=== PATIENT | female | born 1940 | race Caucasian/White ===

== ENCOUNTER 2017-09-13 20:15 | Inpatient (IN) | payer MEDICARE ==
[~2017-09-13] VITALS: Ht 154.9 cm; Wt 88.5 kg
[~2017-09-13 20:15] MED LIST: APRISO0.375 GM PO; ATORVASTATIN CA20 MG PO; AZELASTINE137 MCG/0.; BENTYL10 MG PO; CALCIUM CITRAT1 EA10 PO; CELEBREX100 MG PO; CENTRUM CHEWAB1 EACH PO; CLONIDINE HCL0.1 MG PO; CYMBALTA30 MG PO; DIOVAN160 MG PO; ENTOCORT EC3 MG PO; FAMOTIDINE20 MG PO; FENOFIBRATE145 MG PO; FEOSOL325 MG PO; FIBER625 MG PO; HYDROCODON-ACE1 EA16 PO; IMODIUM2 MG PO; LACTAID3000 UNI1 PO; LASIX20 MG PO; LEFLUNOMIDE20 MG PO; LEVOCETIRIZINE D5 MG PO; LIBRAX CAPSULE1 EACH PO; METHOCARBAMOL750 MG PO; METOPROLOL TART50 MG PO; OMEPRAZOLE40 MG PO; PREDNISONE5 MG PO; QUESTRAN PACKET4 GM PO; SPIRONOLACTONE25 MG PO; SYNTHROID50 MCG PO; TRAZODONE HCL50 MG PO; ULTRAM50 MG PO; VITAMIN B-121000 MCG PO; VITAMIN B-650 MG PO; VITAMIN D31000 UNI1 PO
--- OUTSIDE RECORDS SUMMARY | 2017-09-13 20:18 | XMS REPORT | Clinical Summary ---
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 Role Phone Asked, Pcp PCP Unavailable Allergies Active Allergy Reactions Severity Noted Date Comments Gabapentin Hives 02/04/2016 Penicillins Anaphylaxis High 02/04/2016 Current Medications Not on file Active Problems Not on file Social History Tobacco Use Types Packs/Day Years Used Date Never Smoker Alcohol Use Drinks/Week oz/Week Comments Yes Sex Assigned at Date Recorded Not on file Last Filed Vital Signs Not on file Plan of Treatment Health Maintenance Due Date Last Done Comments BREAST CANCER SCREENING 1992 COLON CANCER SCREENING 1992 SHINGRIX VACCINE (#1) 1992 ZOSTER VACCINE 2002 PNEUMOCOCCAL 2007 POLYSACCHARIDE VACCINE AGE 65 AND OVER PNEUMOCOCCAL-13 2007 INFLUENZA VACCINE 11/09/2017 Results Not on fileafter 09/12/2016 Insurance Payer Benefit Subscriber ID Type Phone Address Plan / Group AETNA MEDICARE AETNA xxxxxxxx O MEDICARE HMO/PPO [facility]
[2017-09-13] MEDS ORDERED: DIATRIZOATE MEGL/DIATRIZOA SOD 30 ML BTL PO ONE (21:05)
[2017-09-13 21:13] LABS: BASOPHILS # (AUTO) 0.1 (0.0-0.1); BASOPHILS % 0.3 % (0.0-1.0); EOSINOPHILS % 0.1 % (0.0-6.0); HEMOGLOBIN 14.2 g/dL (12.0-16.0); LYMPHOCYTES # (AUTO) 3.4 (1.0-3.2); LYMPHOCYTES % 16.2 % (18.0-39.1); MEAN CORPUSCULAR HEMOGLOBIN 31.2 pg (28-32); MEAN CORPUSCULAR HGB CONC 34.6 g/dL (31-35); MEAN CORPUSCULAR VOLUME 90.1 fL (81-99); MONOCYTES % 9.4 % (4.4-11.3); NEUTROPHILS # (AUTO) 15.4 (2.1-6.9); NEUTROPHILS % 73.5 % (38.7-80.0); PLATELET COUNT 292 x10e3/uL (140-360); RED BLOOD COUNT 4.55 x10e6/uL (3.6-5.1); RED CELL DISTRIBUTION WIDTH 12.6 % (11.7-14.4)
[2017-09-13 21:36] LABS: BLOOD UREA NITROGEN 26 mg/dL (7-26); BUN/CREATININE RATIO 25 (6-25); CARBON DIOXIDE 26 mmol/L (22-29); CHLORIDE 96 mmol/L (98-107); CREATININE, SERUM 1.04 mg/dL (0.57-1.11); EST GLOMERULAR FILTRATION RATE 52 ML/MIN (60-); SODIUM 133 mmol/L (136-145)
[2017-09-13 21:37] LABS: ALANINE AMINOTRANSFERASE 21 IU/L (0-55); ALBUMIN 3.9 g/dL (3.5-5.0); ALBUMIN/GLOBULIN RATIO 1.1 (0.8-2.0); ALKALINE PHOSPHATASE 52 IU/L (40-150); AMYLASE 41 U/L (25-125); CALCIUM 10.3 mg/dL (8.4-10.2); CREATINE KINASE 22 IU/L (29-168); GLUCOSE 146 mg/dL (74-118); LIPASE 13 U/L (8-78)
[2017-09-13 21:41] LABS: LYMPHOCYTES % (MANUAL) 11 % (19-48); MONOCYTES % (MANUAL) 13 % (3.4-9.0); NEUTROPHILS % (MANUAL) 74 % (40-74)
[2017-09-13 21:42] LABS: PLATELET ESTIMATE ADEQUATE; PLATELET MORPHOLOGY COMMENT NORMAL; RBC MORPHOLOGY COMMENT NORMAL
[2017-09-13] MEDS ORDERED: LEVOFLOXACIN 500MG/D5W 100ML 100 ML IV STA (21:42)
[2017-09-13] MEDS ORDERED: METRONIDAZOLE 500MG/NS 100ML 100 ML IV STA (21:42)
[2017-09-13] MEDS ORDERED: MORPHINE SULFATE 2 MG/ML SYR IV STA ×2 (21:42→23:29)
[2017-09-13] MEDS ORDERED: METRONIDAZOLE 500MG/NS 100ML 100 ML IV ONE (21:43)
[2017-09-13] MEDS ORDERED: SODIUM CHLORIDE 0.9% 1000ML 1,000 ML ONE (21:44)
[2017-09-13] MEDS ORDERED: SODIUM CHLORIDE 0.9% 1000ML 1,000 ML IV ONE (21:45)
[2017-09-13] MEDS ORDERED: ONDANSETRON HCL 4 MG ORAL DISINTEGRATING TAB PO ONE (21:45)
--- NOTE | 2017-09-13 23:18 | Diagnostic Imaging Report ---
EXAM: CT Abdomen and Pelvis WITHOUT contrast INDICATION: Abdominal pain COMPARISON: None. TECHNIQUE: Abdomen and pelvis were scanned utilizing a multidetector helical scanner from the lung base to the pubic symphysis without administration of IV contrast. Absence of intravenous contrast decreases sensitivity for detection of focal lesions and vascular pathology. Coronal and sagittal reformations were obtained. Routine protocol was performed. IV CONTRAST: None. ORAL CONTRAST: Gastrografin RADIATION DOSE: Total DLP: 717.82 mGy*cm Estimated effective dose: (DLP x 0.015 x size factor) mSv COMPLICATIONS: None FINDINGS: LINES and TUBES: None. LOWER THORAX: Small sliding hiatal hernia. HEPATOBILIARY: No focal hepatic lesions. No biliary ductal dilation. GALLBLADDER: No radio-opaque stones or sludge. No wall thickening. SPLEEN: No splenomegaly. PANCREAS: No focal masses or ductal dilatation. ADRENALS: No adrenal nodules KIDNEYS/URETERS: No hydronephrosis. No cystic or solid mass lesions. No stones. GI TRACT: No abnormal distention, wall thickening, or evidence of bowel obstruction. There are diverticula within the colon with evidence of diverticulitis. Appendix is not clearly identified. There is however no fat stranding or adenopathy in the right lower quadrant to suggest appendicitis. PELVIC ORGANS/BLADDER: Unremarkable. LYMPH NODES: No lymphadenopathy. VESSELS: There is moderate atherosclerotic disease in the aorta and major arterial branches. PERITONEUM / RETROPERITONEUM: There is evidence of free intraperitoneal air in the upper abdomen BONES: Unremarkable. SOFT TISSUES: Unremarkable. IMPRESSION: 1. Free intraperitoneal air suggests hollow viscus perforation. 2. Origin of air may be from subtle perforation of ongoing diverticulitis in the lower pelvis. Differential diagnosis may include a perforated gastric ulcer. 3. Findings were discussed with Dr. Toledo on 09/13/2017 at 11:10 PM Signed by: Dr. Mayur Carreon M.D. on 09/13/2017 11:14 PM
[2017-09-14] MEDS ORDERED: SODIUM CHLORIDE 0.9% 1000ML 1,000 ML IV ONE (00:15)
[2017-09-14 00:17] LABS: INR 1.2; PROTHROMBIN TIME 14.3 seconds (11.9-14.5)
--- OUTSIDE RECORDS SUMMARY | 2017-09-14 00:24 | XMS REPORT | Clinical Summary ---
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
--- OUTSIDE RECORDS SUMMARY | 2017-09-14 00:24 | XMS REPORT ---
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 Allergies, Adverse Reactions, Alerts This patient has no known allergies or adverse reactions. Medications This patient has no known medications. Results Test Description Test Time Test Comments Text Results Atomic Results Result Comments CT ABDOMEN/PELVIS WO [place] [address] Patient Name: ALONDRA HUERTA MR #: [id number] : 1940 Age/Sex: 77/F Req #: [id number] Adm Physician: Ordered by: YE HOPPER MD Report # : [id number] Location: ER Room/Bed: Procedure: 05 -26 CT/CT ABDOMEN/PELVIS WO Exam Date: 09/13/17 Exam Time: 2250 REPORT STATUS: Signed EXAM: CT Abdomen and Pelvis WITHOUT contrast INDICATION: Abdominal pain COMPARISON: None. TECHNIQUE : Abdomen and pelvis were scanned utilizing a multidetector helical scanner from the lung base to the pubic symphysis without administration of IV contrast. Absence of intravenous contrast decreases sensitivity for detection of focal lesions and vascular pathology. Coronal and sagittal reformations were obtained. Routine protocol was performed. IV CONTRAST: None. ORAL CONTRAST: Gastrografin RADIATION DOSE: Total DLP: 717.82 mGy*cm Estimated effective dose: (DLP x 0.015 x size factor) mSv COMPLICATIONS: None FINDINGS: LINES and TUBES: None. LOWER THORAX: Small sliding hiatal hernia. HEPATOBILIARY : No focal hepatic lesions. No biliary ductal dilation. GALLBLADDER: No radio-opaque stones or sludge. No wall thickening. SPLEEN: No splenomegaly. PANCREAS: No focal masses or ductal dilatation. ADRENALS: No adrenal nodules KIDNEYS/URETERS: No hydronephrosis. No cystic or solid mass lesions. No stones. GI TRACT: No abnormal distention, wall thickening, or evidence of bowel obstruction. There are diverticula within the colon with evidence of diverticulitis. Appendix is not clearly identified. There is however no fat stranding or adenopathy in the right lower quadrant to suggest appendicitis. PELVIC ORGANS/BLADDER: Unremarkable. LYMPH NODES: No lymphadenopathy. VESSELS: There is moderate atherosclerotic disease in the aorta and major arterial branches. PERITONEUM / RETROPERITONEUM: There is evidence of free intraperitoneal air in the upper abdomen BONES: Unremarkable. SOFT TISSUES: Unremarkable. IMPRESSION: 1. Free intraperitoneal air suggests hollow viscus perforation. 2. Origin of air may be from subtle perforation of ongoing diverticulitis in the lower pelvis. Differential diagnosis may include a perforated gastric ulcer. 3. Findings were discussed with Dr. Hopper on 09/13/2017 at 11:10 PM Signed by: Dr. Mayur Crareon M.D. on 09/13/2017 11:14 PM Dictated By: MAYUR WINN MD [id number] Transcribed By: JUNIOR on 09/13/17 2242 COPY TO: YE HOPPER MD
[2017-09-14] MEDS ORDERED: LEVOFLOXACIN 500MG/D5W 100ML IV SCH (00:30)
[2017-09-14] MEDS: SODIUM CHLORIDE 0.9% 1000ML 1,000 ML IV SCH ×3 (02:32→17:03)
[2017-09-14] MEDS ORDERED: ACETAMINOPHEN 1000 MG/100 ML IV STA (02:47)
[2017-09-14] MEDS ORDERED: ACETAMINOPHEN 1000 MG/100 ML IV PRN (03:00)
[2017-09-14 03:58] LABS: BILIRUBIN,URINE NEGATIVE (NEGATIVE); CLARITY,URINE CLEAR (CLEAR); COLOR,URINE YELLOW (YELLOW); KETONES,URINE NEGATIVE (NEGATIVE); LEUKOCYTE ESTERASE ,URINE NEGATIVE (NEGATIVE); NITRITE,URINE NEGATIVE (NEGATIVE); PROTEIN,URINE DIPSTICK NEGATIVE (NEGATIVE); URINE UROBILINOGEN 0.2 mg/dL (0.2 - 1)
[2017-09-14 04:16] LABS: BACTERIA,URINE FEW /HPF; EPITHELIAL CELLS,URINE RARE /LPF; RBC,URINE 0-5 /HPF (0-5); WBC,URINE (MAN) 0-5 /HPF (0-5)
[2017-09-14] MEDS: MORPHINE SULFATE 2 MG/ML SYR IV PRN ×4 (04:46→16:06)
[2017-09-14] MEDS: ONDANSETRON HCL INJ 2 MG/ML VIAL IV PRN (04:46)
[2017-09-14 05:27] LABS: BASOPHILS # (AUTO) 0.1 (0.0-0.1); BASOPHILS % 0.3 % (0.0-1.0); HEMATOCRIT 35.5 % (34.2-44.1); HEMOGLOBIN 12.2 g/dL (12.0-16.0); LYMPHOCYTES # (AUTO) 1.5 (1.0-3.2); LYMPHOCYTES % 8.4 % (18.0-39.1); MEAN CORPUSCULAR HEMOGLOBIN 31.2 pg (28-32); MEAN CORPUSCULAR HGB CONC 34.4 g/dL (31-35); MEAN CORPUSCULAR VOLUME 90.8 fL (81-99); MONOCYTES % 5.7 % (4.4-11.3); NEUTROPHILS # (AUTO) 15.3 (2.1-6.9); NEUTROPHILS % 84.6 % (38.7-80.0); PLATELET COUNT 196 x10e3/uL (140-360); RED BLOOD COUNT 3.91 x10e6/uL (3.6-5.1); RED CELL DISTRIBUTION WIDTH 12.7 % (11.7-14.4)
[2017-09-14 05:44] LABS: ALANINE AMINOTRANSFERASE 15 IU/L (0-55); ALBUMIN/GLOBULIN RATIO 1.1 (0.8-2.0); ALKALINE PHOSPHATASE 35 IU/L (40-150); ANION GAP 13.1 mmol/L (8-16); BLOOD UREA NITROGEN 24 mg/dL (7-26); BUN/CREATININE RATIO 29 (6-25); CALCIUM 8.6 mg/dL (8.4-10.2); CARBON DIOXIDE 22 mmol/L (22-29); CHLORIDE 103 mmol/L (98-107); CREATININE, SERUM 0.84 mg/dL (0.57-1.11); EST GLOMERULAR FILTRATION RATE > 60 ML/MIN (60-); GLUCOSE 110 mg/dL (74-118); POTASSIUM 4.1 mmol/L (3.5-5.1); SODIUM 134 mmol/L (136-145)
[2017-09-14] MEDS: METRONIDAZOLE 500MG/NS 100ML 100 ML IV SCH ×3 (05:48→18:13)
[2017-09-14] MEDS ORDERED: SPIRONOLACTONE25 MG PO (09:10)
[2017-09-14] MEDS ORDERED: LEVOCETIRIZINE D5 MG (09:10)
[2017-09-14] MEDS ORDERED: CYMBALTA30 MG (09:10)
[2017-09-14] MEDS ORDERED: LOSARTAN POTAS100 MG PO (09:10)
--- NOTE | 2017-09-14 10:33 | History and Physical ---
Ms. Chase is a pleasant, 77-year-old lady, a patient of Dr. Silva and Dr. Bailey, who is also seeing rheumatology for longstanding psoriatic arthritis. The patient was in her usual state of health until Tuesday when she woke up with significant abdominal pain. The patient describes the pain as diffuse, poorly localized and increasing in intensity over the day and became unbearable by the time she presented to the emergency department Tuesday evening. She denies any fever or chills. She had some nausea, but no vomiting. Her last bowel movement was Tuesday and according to the patient was normal. She had seen Dr. Bailey about a week prior and was found to be doing well. Workup in the emergency department revealed an increased white cell count of 20,000. The patient appeared to be dehydrated and septic. A CT of the abdomen and pelvis was significant for free intraperitoneal air suggesting a hollow viscus perforation. There are also scattered diverticula and evidence of diverticulitis. She was admitted to the hospital. She has been started on IV fluids and IV antibiotics, and a consultation is being requested with Dr. Mihai Vidal. PAST MEDICAL HISTORY: Hypertension, hypercholesterolemia, irritable bowel syndrome, chronic pain, hypothyroidism, and psoriatic arthritis. The patient denies any history of coronary artery disease or atherosclerotic heart disease. There is no history of stroke. No history of diabetes mellitus. No prior renal problems. PAST SURGICAL HISTORY: Significant for hysterectomy and right knee surgery. SOCIAL HISTORY: The patient is . She is living with her . She does not smoke or drink. FAMILY HISTORY: Significant for stroke in her mother and VT in her father. CURRENT MEDICATIONS: Include: 1. Duloxetine 30 mg daily. 2. Famotidine 20 mg daily. 3. Iron supplementation 325 mg 3 times a week. 4. Levothyroxine 50 mcg daily. 5. Losartan 100 mg a day. 6. Mesalamine. She is taking a short course of 1.5 mg daily for 10 days. 7. Metoprolol 50 mg twice a day. 8. Prednisone 5 mg daily. 9. Spironolactone 25 mg daily. 10. Tramadol. She takes 50 mg twice a day as needed for pain. 11. She is also on budesonide short course of 10 days at 9 mg daily. ALLERGIES: SHE IS ALLERGIC TO PENICILLIN (SHE IS NOT SURE ABOUT THE REACTION) AND GABAPENTIN. REVIEW OF SYSTEMS GENERAL: Patient looks acutely ill. She denies any significant weight loss. There is some malaise. RESPIRATORY: There is no dyspnea. No cough. CARDIOVASCULAR: There is no chest pain. GASTROINTESTINAL: Diffuse abdominal pain. No diarrhea. No constipation. Some nausea. PHYSICAL EXAMINATION GENERAL: She is awake, alert, oriented times 3. VITAL SIGNS: Blood pressure 108/76, pulse rate 92, respirations 18, temperature 99. SKIN: Dry and warm. Turgor is decreased. HEENT: Pupils are round, equal and reactive to light. Oral mucosa is dry. NECK: Supple. There is no increased JVD. CHEST: Nontraumatic. LUNGS: Normal bilateral respiratory sounds. HEART: S1 and S2 regular rhythm. No gallops or murmurs. ABDOMEN: Obese. Bowel sounds are present, but hypoactive. There is diffuse tenderness across the abdomen. EXTREMITIES: There is no edema. NEUROLOGIC: She is awake, alert, and oriented times 3. There are no focal sensory or motor deficits. ASSESSMENT 1. Acute complicated diverticulitis with suspected microperforation. 2. Intra-abdominal sepsis. 3. Chronic use of steroids for psoriatic arthritis. 4. Hypertension, which is controlled. PLAN: Admit her to the hospital. Start normal saline at 125 mL an hour. Continue with combination of levofloxacin and metronidazole. Morphine sulfate for pain. Request consultation with Dr. Mihai Vidal and Dr. Kenny Bailey. Job#: [id number]
[2017-09-14 12:49] VITALS: BP 105/50
[2017-09-14 13:33] VITALS: BP 105/50
[2017-09-14 13:39] VITALS: BP 105/50
[2017-09-14 16:01] VITALS: BP 121/56
[2017-09-14] MEDS: FAMOTIDINE 20 MG/2 ML VIAL IV SCH (17:07)
[2017-09-14 20:20] VITALS: BP 140/62
[2017-09-14] MEDS: LEVOFLOXACIN 500MG/D5W 100ML IV SCH (21:00)
[2017-09-15] VITALS (9 sets, daily range): BP systolic 118–145; BP diastolic 50–65
[2017-09-15] MEDS: SODIUM CHLORIDE 0.9% 1000ML 1,000 ML IV SCH ×3 (00:26→16:16)
[2017-09-15] MEDS: METRONIDAZOLE 500MG/NS 100ML 100 ML IV SCH ×5 (00:26→23:30)
[2017-09-15] MEDS: MORPHINE SULFATE 2 MG/ML SYR IV PRN ×4 (01:16→23:55)
[2017-09-15] MEDS: ONDANSETRON HCL INJ 2 MG/ML VIAL IV PRN (01:16)
--- NOTE | 2017-09-15 05:49 | Diagnostic Imaging Report ---
EXAMINATION: CHEST SINGLE (PORTABLE) INDICATION: Leukocytosis COMPARISON: None FINDINGS: TUBES and LINES: None. LUNGS: Lungs are not well inflated. Lungs are clear. There is no evidence of pneumonia or pulmonary edema. PLEURA: No pleural effusion or pneumothorax. HEART AND MEDIASTINUM: The cardiomediastinal silhouette is unremarkable. The aorta is ectatic with atherosclerotic calcifications. BONES AND SOFT TISSUES: No acute osseous lesion. Soft tissues are unremarkable. UPPER ABDOMEN: No free air under the diaphragm. IMPRESSION: No acute thoracic abnormality. Signed by: Dr. Mayur Carreon M.D. on 09/15/2017 5:46 AM
[2017-09-15 07:24] LABS: HEMATOCRIT 34.2 % (34.2-44.1); HEMOGLOBIN 11.6 g/dL (12.0-16.0); RED BLOOD COUNT 3.64 x10e6/uL (3.6-5.1)
[2017-09-15 07:25] LABS: BASOPHILS % 0.2 % (0.0-1.0); EOSINOPHILS % 0.3 % (0.0-6.0); LYMPHOCYTES # (AUTO) 1.4 (1.0-3.2); LYMPHOCYTES % 9.2 % (18.0-39.1); MEAN CORPUSCULAR HEMOGLOBIN 31.9 pg (28-32); MEAN CORPUSCULAR HGB CONC 33.9 g/dL (31-35); MONOCYTES # (AUTO) 1.2 (0.2-0.8); MONOCYTES % 7.6 % (4.4-11.3); NEUTROPHILS # (AUTO) 12.2 (2.1-6.9); PLATELET COUNT 186 x10e3/uL (140-360); RED CELL DISTRIBUTION WIDTH 12.9 % (11.7-14.4)
[2017-09-15 07:32] LABS: ANION GAP 11.4 mmol/L (8-16); BLOOD UREA NITROGEN 14 mg/dL (7-26); BUN/CREATININE RATIO 19 (6-25); CALCIUM 8.3 mg/dL (8.4-10.2); CARBON DIOXIDE 22 mmol/L (22-29); CHLORIDE 106 mmol/L (98-107); CREATININE, SERUM 0.73 mg/dL (0.57-1.11); EST GLOMERULAR FILTRATION RATE > 60 ML/MIN (60-); GLUCOSE 93 mg/dL (74-118); POTASSIUM 4.4 mmol/L (3.5-5.1); SODIUM 135 mmol/L (136-145)
[2017-09-15] MEDS: FAMOTIDINE 20 MG/2 ML VIAL IV SCH ×2 (08:36→17:22)
[2017-09-15 10:35] LABS: BAND NEUTROPHILS % (MANUAL) 3 %; BLAST CELLS % MANUAL 1; LYMPHOCYTES % (MANUAL) 6 % (19-48); MONOCYTES % (MANUAL) 15 % (3.4-9.0); NEUTROPHILS % (MANUAL) 72 % (40-74)
[2017-09-15 10:36] LABS: ANISOCYTOSIS SLIGHT; HYPOCHROMASIA SLIGHT; PLATELET ESTIMATE ADEQUATE; PLATELET MORPHOLOGY COMMENT NORMAL; RBC MORPHOLOGY COMMENT NORMAL
[2017-09-15] MEDS: LEVOFLOXACIN 500MG/D5W 100ML IV SCH (20:13)
[2017-09-16] VITALS (8 sets, daily range): BP systolic 130–150; BP diastolic 56–68
[2017-09-16] MEDS: SODIUM CHLORIDE 0.9% 1000ML 1,000 ML IV SCH ×3 (00:16→20:42)
[2017-09-16] MEDS: METRONIDAZOLE 500MG/NS 100ML 100 ML IV SCH ×4 (05:36→23:33)
[2017-09-16 06:03] LABS: BASOPHILS % 0.2 % (0.0-1.0); EOSINOPHILS # (AUTO) 0.1 (0.0-0.4); EOSINOPHILS % 0.8 % (0.0-6.0); HEMATOCRIT 32.4 % (34.2-44.1); LYMPHOCYTES # (AUTO) 1.3 (1.0-3.2); LYMPHOCYTES % 9.6 % (18.0-39.1); MEAN CORPUSCULAR HEMOGLOBIN 31.4 pg (28-32); MEAN CORPUSCULAR VOLUME 92.6 fL (81-99); MONOCYTES # (AUTO) 1.4 (0.2-0.8); MONOCYTES % 10.5 % (4.4-11.3); NEUTROPHILS # (AUTO) 10.6 (2.1-6.9); NEUTROPHILS % 77.7 % (38.7-80.0); PLATELET COUNT 197 x10e3/uL (140-360); RED CELL DISTRIBUTION WIDTH 12.9 % (11.7-14.4)
[2017-09-16 06:29] LABS: ALANINE AMINOTRANSFERASE 10 IU/L (0-55); ALBUMIN 2.1 g/dL (3.5-5.0); ALBUMIN/GLOBULIN RATIO 0.7 (0.8-2.0); ALKALINE PHOSPHATASE 44 IU/L (40-150); ANION GAP 13.1 mmol/L (8-16); BLOOD UREA NITROGEN 8 mg/dL (7-26); BUN/CREATININE RATIO 13 (6-25); CALCIUM 8.3 mg/dL (8.4-10.2); CARBON DIOXIDE 18 mmol/L (22-29); CHLORIDE 101 mmol/L (98-107); CREATININE, SERUM 0.62 mg/dL (0.57-1.11); EST GLOMERULAR FILTRATION RATE > 60 ML/MIN (60-); GLUCOSE 92 mg/dL (74-118); POTASSIUM 3.1 mmol/L (3.5-5.1); SODIUM 129 mmol/L (136-145)
[2017-09-16] MEDS: FAMOTIDINE 20 MG/2 ML VIAL IV SCH ×2 (08:01→17:07)
[2017-09-16] MEDS ORDERED: POTASSIUM CHLORIDE 20 MEQ TAB CR PO STA (09:37)
[2017-09-16] MEDS ORDERED: LEVOTHYROXINE SODIUM 50 MCG TAB PO SCH (09:45)
[2017-09-16] MEDS ORDERED: TRAMADOL HCL 50 MG TAB PO PRN (10:00)
[2017-09-16] MEDS: ONDANSETRON HCL INJ 2 MG/ML VIAL IV PRN (11:23)
[2017-09-16] MEDS: MORPHINE SULFATE 2 MG/ML SYR IV PRN ×2 (11:23→21:00)
[2017-09-16] MEDS ORDERED: POTASSIUM CHLORIDE 20 MEQ TAB CR PO ONE (14:00)
[2017-09-16] MEDS: METOPROLOL TARTRATE 50 MG TAB PO SCH (17:07)
[2017-09-16] MEDS: ENOXAPARIN SOD INJ 40 MG/0.4 ML SYR SC SCH (17:07)
[2017-09-16] MEDS: LEVOFLOXACIN 500MG/D5W 100ML IV SCH (21:00)
[2017-09-17] VITALS (8 sets, daily range): BP systolic 115–156; BP diastolic 62–76
[2017-09-17] MEDS: LEVOTHYROXINE SODIUM 50 MCG TAB PO SCH (05:31)
[2017-09-17] MEDS: METRONIDAZOLE 500MG/NS 100ML 100 ML IV SCH ×4 (05:31→23:30)
[2017-09-17] MEDS: TRAMADOL HCL 50 MG TAB PO PRN ×3 (05:44→22:47)
[2017-09-17 06:04] LABS: BASOPHILS % 0.3 % (0.0-1.0); EOSINOPHILS # (AUTO) 0.2 (0.0-0.4); EOSINOPHILS % 1.2 % (0.0-6.0); HEMATOCRIT 32.9 % (34.2-44.1); HEMOGLOBIN 11.2 g/dL (12.0-16.0); LYMPHOCYTES # (AUTO) 1.8 (1.0-3.2); LYMPHOCYTES % 15.1 % (18.0-39.1); MEAN CORPUSCULAR HEMOGLOBIN 31.1 pg (28-32); MEAN CORPUSCULAR VOLUME 91.4 fL (81-99); MONOCYTES # (AUTO) 1.5 (0.2-0.8); MONOCYTES % 12.1 % (4.4-11.3); NEUTROPHILS # (AUTO) 8.4 (2.1-6.9); NEUTROPHILS % 69.8 % (38.7-80.0); PLATELET COUNT 238 x10e3/uL (140-360); RED CELL DISTRIBUTION WIDTH 12.8 % (11.7-14.4)
[2017-09-17 06:22] LABS: ANION GAP 11.5 mmol/L (8-16); BLOOD UREA NITROGEN 7 mg/dL (7-26); BUN/CREATININE RATIO 11 (6-25); CALCIUM 8.8 mg/dL (8.4-10.2); CARBON DIOXIDE 23 mmol/L (22-29); CHLORIDE 104 mmol/L (98-107); CREATININE, SERUM 0.64 mg/dL (0.57-1.11); EST GLOMERULAR FILTRATION RATE > 60 ML/MIN (60-); GLUCOSE 108 mg/dL (74-118); POTASSIUM 3.5 mmol/L (3.5-5.1); SODIUM 135 mmol/L (136-145)
[2017-09-17] MEDS: POTASSIUM CHLORIDE 20 MEQ TAB CR PO SCH (08:01)
[2017-09-17] MEDS: SODIUM CHLORIDE 0.9% 1000ML 1,000 ML IV SCH ×2 (08:01→23:22)
[2017-09-17] MEDS: FAMOTIDINE 20 MG/2 ML VIAL IV SCH ×2 (08:01→16:42)
[2017-09-17] MEDS: METOPROLOL TARTRATE 50 MG TAB PO SCH ×2 (08:01→16:43)
[2017-09-17] MEDS ORDERED: POTASSIUM CHLORIDE 20 MEQ TAB CR PO ONE (11:30)
[2017-09-17] MEDS ORDERED: SODIUM CHLORIDE 452MG TAB PO ONE (11:30)
[2017-09-17] MEDS: ENOXAPARIN SOD INJ 40 MG/0.4 ML SYR SC SCH (16:43)
[2017-09-17] MEDS: LEVOFLOXACIN 500MG/D5W 100ML IV SCH (20:23)
[2017-09-18 01:19] VITALS: BP 157/74
[2017-09-18 04:20] VITALS: BP 142/81
[2017-09-18] MEDS: LEVOTHYROXINE SODIUM 50 MCG TAB PO SCH (06:10)
[2017-09-18] MEDS: METRONIDAZOLE 500MG/NS 100ML 100 ML IV SCH ×3 (06:10→17:00)
[2017-09-18 06:21] LABS: ANION GAP 11.2 mmol/L (8-16); BLOOD UREA NITROGEN 6 mg/dL (7-26); BUN/CREATININE RATIO 10 (6-25); CALCIUM 8.5 mg/dL (8.4-10.2); CARBON DIOXIDE 24 mmol/L (22-29); CHLORIDE 108 mmol/L (98-107); EST GLOMERULAR FILTRATION RATE > 60 ML/MIN (60-); GLUCOSE 101 mg/dL (74-118); POTASSIUM 4.2 mmol/L (3.5-5.1); SODIUM 139 mmol/L (136-145)
[2017-09-18] MEDS: TRAMADOL HCL 50 MG TAB PO PRN ×2 (06:26→21:35)
[2017-09-18] MEDS: FAMOTIDINE 20 MG/2 ML VIAL IV SCH ×2 (08:18→17:20)
[2017-09-18] MEDS: METOPROLOL TARTRATE 50 MG TAB PO SCH ×2 (08:20→17:28)
[2017-09-18] MEDS: POTASSIUM CHLORIDE 20 MEQ TAB CR PO SCH (08:20)
[2017-09-18 08:21] VITALS: BP 147/65
[2017-09-18 11:45] VITALS: BP 146/65
[2017-09-18] MEDS: SODIUM CHLORIDE 0.9% 1000ML 1,000 ML IV SCH (14:02)
[2017-09-18 14:42] LABS: BILIRUBIN,URINE NEGATIVE (NEGATIVE); CLARITY,URINE HAZY (CLEAR); COLOR,URINE YELLOW (YELLOW); KETONES,URINE NEGATIVE (NEGATIVE); LEUKOCYTE ESTERASE ,URINE NEGATIVE (NEGATIVE); NITRITE,URINE NEGATIVE (NEGATIVE); PROTEIN,URINE DIPSTICK NEGATIVE (NEGATIVE); URINE UROBILINOGEN 0.2 mg/dL (0.2 - 1)
[2017-09-18 14:46] LABS: BACTERIA,URINE FEW /HPF; EPITHELIAL CELLS,URINE FEW /LPF; RBC,URINE 0-5 /HPF (0-5); WBC,URINE (MAN) 0-5 /HPF (0-5)
[2017-09-18 16:25] VITALS: BP 147/67
[2017-09-18] MEDS: ENOXAPARIN SOD INJ 40 MG/0.4 ML SYR SC SCH (17:28)
[2017-09-18 20:00] VITALS: BP 167/74
[2017-09-18] MEDS: LEVOFLOXACIN 500MG/D5W 100ML IV SCH (20:45)
[2017-09-19] VITALS (8 sets, daily range): BP systolic 136–160; BP diastolic 61–79
[2017-09-19] MEDS: METRONIDAZOLE 500MG/NS 100ML 100 ML IV SCH ×5 (00:15→23:57)
[2017-09-19] MEDS ORDERED: SPIRONOLACTONE 25 MG TAB PO SCH (00:45)
[2017-09-19] MEDS ORDERED: SPIRONOLACTONE 25 MG TAB PO ONE (00:45)
[2017-09-19] MEDS: SODIUM CHLORIDE 0.9% 1000ML 1,000 ML IV SCH ×2 (02:02→15:04)
[2017-09-19] MEDS: LEVOTHYROXINE SODIUM 50 MCG TAB PO SCH (05:32)
[2017-09-19] MEDS: TRAMADOL HCL 50 MG TAB PO PRN ×2 (07:52→21:50)
[2017-09-19] MEDS: FAMOTIDINE 20 MG/2 ML VIAL IV SCH ×2 (08:59→17:22)
[2017-09-19] MEDS: SPIRONOLACTONE 25 MG TAB PO SCH ×2 (08:59→17:22)
[2017-09-19] MEDS: METOPROLOL TARTRATE 50 MG TAB PO SCH ×2 (09:00→17:23)
[2017-09-19] MEDS: POTASSIUM CHLORIDE 20 MEQ TAB CR PO SCH (09:00)
[2017-09-19] MEDS: ENOXAPARIN SOD INJ 40 MG/0.4 ML SYR SC SCH (17:23)
[2017-09-19] MEDS: LEVOFLOXACIN 500MG/D5W 100ML IV SCH (20:45)
[2017-09-20 04:20] VITALS: BP 169/93
[2017-09-20] MEDS: METRONIDAZOLE 500MG/NS 100ML 100 ML IV SCH (05:28)
[2017-09-20] MEDS: LEVOTHYROXINE SODIUM 50 MCG TAB PO SCH (05:28)
[2017-09-20 06:04] LABS: BASOPHILS # (AUTO) 0.1 (0.0-0.1); BASOPHILS % 0.7 % (0.0-1.0); EOSINOPHILS # (AUTO) 0.1 (0.0-0.4); EOSINOPHILS % 1.5 % (0.0-6.0); HEMATOCRIT 31.6 % (34.2-44.1); HEMOGLOBIN 10.6 g/dL (12.0-16.0); LYMPHOCYTES # (AUTO) 2.2 (1.0-3.2); LYMPHOCYTES % 26.5 % (18.0-39.1); MEAN CORPUSCULAR HGB CONC 33.5 g/dL (31-35); MEAN CORPUSCULAR VOLUME 92.4 fL (81-99); MONOCYTES # (AUTO) 1.1 (0.2-0.8); MONOCYTES % 13.5 % (4.4-11.3); NEUTROPHILS # (AUTO) 4.4 (2.1-6.9); NEUTROPHILS % 52.2 % (38.7-80.0); PLATELET COUNT 259 x10e3/uL (140-360); RED BLOOD COUNT 3.42 x10e6/uL (3.6-5.1); RED CELL DISTRIBUTION WIDTH 13.5 % (11.7-14.4)
[2017-09-20 06:38] LABS: BLOOD UREA NITROGEN 5 mg/dL (7-26); BUN/CREATININE RATIO 7 (6-25); CALCIUM 8.7 mg/dL (8.4-10.2); CARBON DIOXIDE 27 mmol/L (22-29); CHLORIDE 107 mmol/L (98-107); EST GLOMERULAR FILTRATION RATE > 60 ML/MIN (60-); GLUCOSE 102 mg/dL (74-118); SODIUM 139 mmol/L (136-145)
[2017-09-20] MEDS: TRAMADOL HCL 50 MG TAB PO PRN (07:59)
[2017-09-20] MEDS: SODIUM CHLORIDE 0.9% 1000ML 1,000 ML IV SCH (07:59)
[2017-09-20 08:04] LABS: EOSINOPHILS % (MANUAL) 4 % (0-7); LYMPHOCYTES % (MANUAL) 23 % (19-48); MONOCYTES % (MANUAL) 13 % (3.4-9.0); NEUTROPHILS % (MANUAL) 59 % (40-74); PROMYELOCYTES % (MANUAL) 1 % (0-0)
[2017-09-20 08:06] LABS: ANISOCYTOSIS SLIGHT; HYPOCHROMASIA SLIGHT; PLATELET ESTIMATE ADEQUATE; PLATELET MORPHOLOGY COMMENT NORMAL; RBC MORPHOLOGY COMMENT NORMAL
[2017-09-20 09:12] VITALS: BP 180/74
[2017-09-20] MEDS: METOPROLOL TARTRATE 50 MG TAB PO SCH (09:32)
[2017-09-20] MEDS: POTASSIUM CHLORIDE 20 MEQ TAB CR PO SCH (09:32)
[2017-09-20] MEDS: SPIRONOLACTONE 25 MG TAB PO SCH (09:32)
[2017-09-20] MEDS: FAMOTIDINE 20 MG/2 ML VIAL IV SCH (09:32)
[2017-09-20 09:54] VITALS: BP 180/74
[2017-09-20] MEDS ORDERED: FLAGYL500 MG PO (10:43)
[2017-09-20] MEDS ORDERED: LEVAQUIN500 MG PO (10:43)
--- NOTE | 2017-09-20 12:23 | Discharge Summary ---
Ms. Chase is a pleasant 77-year-old woman who presented to the emergency room on the with a complaint of abdominal pain, diarrhea and was felt to have microperforation of the colon. She was seen by Dr. Mihai Vidal and Dr. Mckinnon and Dr. Kenny Bailey who felt an attempt at medical management would be appropriate. Dr. Mckinnon felt that by the that there was some "walling off" of the diverticulitis. She was given Flagyl and Levaquin and low residue diet. Patient made gradual progress with her white blood cell count improving and she remained afebrile. Note is that patient was using a low dose steroid 5 mg a day a day at home for psoriasis and arthritis but this was discontinued in the hospital. The patient's blood pressure is some elevated today but has not yet received her regular metoprolol. She reports her home blood pressures are usually normal with her home medical regimen. Today she has normal bowel sounds, nontender, having bowel movements. She has visited with rn pacu about appropriate diet. She is discharged to home today to add Levaquin 500 mg daily and Flagyl 500 mg q.i.d. for 10 days to her home medications. She will discontinue steroids at this time for now. She will followup with her family doctor, Dr. Russell and with Dr. Bailey and Dr. Mihai Vidal as an outpatient. DISCHARGE DIAGNOSES 1. Microperforation of diverticulitis. 2. Hypertension. BRII RICHARDS MD Job#: [id number] DG cc:MD KENNY PHILIP MD JULIE S. BORTOLOTTI, MD
== END 2017-09-20 11:40 | disposition home or self-care (01) | DRG 872 ==
LOC: ER 20:15 → ERHOLD 09-14 00:21 → MED/SURG2 09-14 11:57 → ACU 09-19 11:38 → MED/SURG2 09-19 11:38
PROVIDERS: ADMIT Internal Medicine; ATTEND Internal Medicine
DX: A41.9 Sepsis, unspecified organism (principal); N39.0 Urinary tract infection, site not specified; K57.80 Diverticulitis of intestine, part unspecified, with perforation and abscess without bleeding; R65.20 Severe sepsis without septic shock; L40.50 Arthropathic psoriasis, unspecified; E78.00 Pure hypercholesterolemia, unspecified; E03.9 Hypothyroidism, unspecified; E86.0 Dehydration; I25.10 Atherosclerotic heart disease of native coronary artery without angina pectoris; Z79.52 Long term (current) use of systemic steroids; I10 Essential (primary) hypertension; E66.9 Obesity, unspecified; Z68.36 Body mass index [BMI] 36.0-36.9, adult; E87.6 Hypokalemia; D64.9 Anemia, unspecified
CPT/HCPCS: 36415; 51700; 71045; 74176; 80048; 80053; 81001; 82150; 82550; 82553; 83690; 83735; 84484; 85025; 85610; 85730; 93005; 96361; 99284; J1650; J1956; J2270; J2405; J7030